=== PATIENT | female | born 1965 | race Caucasian/White ===

== ENCOUNTER 2017-09-16 13:14 | Emergency (ER) | payer MEDICAID ==
[~2017-09-16] VITALS: Ht 175.3 cm; Wt 104.3 kg
[2017-09-16 13:15] VITALS: BP_SYST 142
--- NOTE | 2017-09-16 13:16 | NUR ---
BROUGHT BACK TO BED #6 AND TRIAGED, REPORT GIVEN TO KATHERINE
--- NOTE | 2017-09-16 13:28 | NUR ---
CLARITA HALE at bedside examining patient.
--- NOTE | 2017-09-16 13:30 | NUR ---
Pt presents c/o urinary frequncy and burning x 2 days. Pt has Bladder stimulator that is not functioning. Pt also reports nausea, no diarrhea,no vomiting and back pain 10. Pt has h/o HTN ,asthma, fibromyalgia.Pt seen approx. 2 months ago for same s/s with dx: UTI.
[2017-09-16] MEDS ORDERED: KETOROLAC TROMETHAMINE 60 MG/2 ML VIAL IM ONE (13:45)
[2017-09-16] MEDS ORDERED: ONDANSETRON 4 MG ODT TAB PO ONE (13:45)
--- NOTE | 2017-09-16 13:45 | NUR ---
PT TOLERATED MEDICATION WELL. MONITORING PT FOR IMPROVEMENT.
[2017-09-16 14:25] LABS: BILIRUBIN,URINE NEGATIVE (NEGATIVE); BLOOD, URINE 1+ (NEGATIVE); CLARITY/URINE SL HAZY (CLEAR); COLOR,URINE YELLOW (YELLOW); GLUCOSE,URINE NEGATIVE (NEGATIVE); KETONES,URINE TRACE (NEGATIVE); LEUKOCYTE ESTERASE ,URINE TRACE (NEGATIVE); NITRITE, URINE NEGATIVE (NEGATIVE); PROTEIN URINE NEGATIVE (NEGATIVE); UROBILINOGEN,URINE 0.2 (0.2-1.0)
[2017-09-16 14:40] LABS: BACTERIA,URINE FEW /HPF (None Seen); MUCUS,URINE 1+ /LPF (None Seen)
[2017-09-16 14:43] VITALS: BP_SYST 142
--- NOTE | 2017-09-16 14:43 | NUR ---
Patient given written and verbal discharge instructions and verbalizes understanding. ER MD discussed with patient the results and treatment provided. Patient in stable condition. ID arm band removed. Rx of PYRIDIUM,MOTRIN,CIPRO given. Patient educated on pain management and to follow up with PMD. Pain Scale 2. Opportunity for questions provided and answered.
[2017-09-16] MEDS ORDERED: PHENAZOPYRIDINE HCL 100 MG TABLET PO ONE (14:45)
== END 2017-09-16 14:43 | disposition home or self-care (01) ==
LOC: SED 13:14
DX: N39.0 Urinary tract infection, site not specified (principal); R03.0 Elevated blood-pressure reading, without diagnosis of hypertension; J45.909 Unspecified asthma, uncomplicated; E11.9 Type 2 diabetes mellitus without complications; I10 Essential (primary) hypertension; F32.9 Major depressive disorder, single episode, unspecified; Z88.5 Allergy status to narcotic agent; Z90.49 Acquired absence of other specified parts of digestive tract
CPT/HCPCS: 81000; 81025; 87086; 96372; 99284; J1885; Q0162